=== PATIENT | female | born 2000 | race Caucasian/White ===

== ENCOUNTER 2022-07-10 20:03 | Emergency (ER) | payer BC ==
[~2022-07-10] VITALS: Ht 165.1 cm; Wt 109.1 kg
[2022-07-10] MEDS ORDERED: HYDROcodone/acetaminophen 5mg/325mg tablet PO ONE (22:05)
[2022-07-10] MEDS ORDERED: ondansetron 4mg rapidly disintigrating tab PO ONE (22:05)
[2022-07-10] MEDS ORDERED: HYDR-3965 PO (22:40)
[2022-07-10 22:58] VITALS: BP 132/84
== END 2022-07-10 22:59 | disposition home or self-care (01) ==
LOC: ER 20:04
DX: M25.562 Pain in left knee (principal); Z79.899 Other long term (current) drug therapy; X50.1XXA Overexertion from prolonged static or awkward postures, initial encounter; Y93.64 Activity, baseball; Y92.89 Other specified places as the place of occurrence of the external cause; Y99.8 Other external cause status
CPT/HCPCS: 29505; 73564; 99283